=== PATIENT | female | born 1995 | race Caucasian/White ===

== ENCOUNTER → 2020-11-26 06:56 | Outpatient (CLI) | payer OTHER, SELFPAY ==
[2020-11-26 07:58] LABS: Hematocrit 37.3 % (36-46); Hemoglobin 12.6 g/dL (12.0-16.0); Mean Corpuscular HGB Conc 33.7 % (30-36); Mean Corpuscular Hemoglobin 29.2 PG (26-34); Mean Corpuscular Volume 86.8 fL (80-100); Platelet Count 141 X10^3/uL (150-400); White Blood Cell Count 7.5 X10^3/uL (4.5-11.0)
[2020-11-26 08:25] LABS: Glucose Fasting 80 mg/dL (70-100)
[2020-11-26 09:10] LABS: Glucose 1 Hour 150 mg/dL (70-170)
[2020-11-26 09:14] LABS: Glucose Tol Interpretation INTERPRETATION
[2020-11-26 10:23] LABS: Glucose 2 Hour 75 mg/dL (70-140)
== END ==
PROVIDERS: Referring Provider Nurse Practitioner Obstetrics & Gynecology; Visit Provider Nurse Practitioner Obstetrics & Gynecology
DX: Z34.90 Encounter for supervision of normal pregnancy, unspecified, unspecified trimester (principal); Z13.1 Encounter for screening for diabetes mellitus; Z3A.26 26 weeks gestation of pregnancy
CPT/HCPCS: 36415; 82951; 82952; 85027

== ENCOUNTER → 2021-01-29 13:11 | Outpatient (ROUT) | payer OTHER, SELFPAY | PROVIDERS: Visit Provider Nurse Practitioner Obstetrics & Gynecology | DX: Z34.90 Encounter for supervision of normal pregnancy, unspecified, unspecified trimester (principal); Z36.85 Encounter for antenatal screening for Streptococcus B; Z3A.36 36 weeks gestation of pregnancy | CPT/HCPCS: 87081 ==

== ENCOUNTER 2021-02-25 01:28 | Inpatient (IN) | payer OTHER, SELFPAY ==
--- NOTE | 2021-02-25 01:39 | PM.OBHP.1 ---
OB HPI Date/Time Date of admission: 02/25/21 Date Patient Seen: 02/25/21 Time Patient Seen: 01:40 History of Present Condition Chief complaint: Observation of labor : 3 Para: 1 Estimated Date of Delivery: 02/22/21 Estimated Gestational Age (weeks): 40.2 Narrative: Lizet Foreman is a 25 year old female @ [id number] by LMP and early US who presents for evaluation of labor. Was feeling mild contraction when water broke around midnight with a large gush of clear fluid. Contractions have progressed in frequency and intensity since that time. No uncomfortable, but not breathing through contractions yet. Desires low intervention . Uncomplicated care w/ CNM, transferred in from [facility] @ 22wks. is present and supportive. History of Present care: good care and pounds weight gain (34) Dating criteria: LMP confirmed by 1st trimester US Ultrasounds: normal mid trimester US Obstetrical complications: none Medical complications: none Preadmission Labs Blood type: B (+) positive -: Antibody screen: negative, GBS status: negative, HBsAG: negative, HIV: negative and RPR/VDLR: negative -: Chlamydia screen: not detected and Gonorrhea screen: not detected -: Rubella: immune and Varicella: immune HCT: 37.3 HCAB: negative PAP: Normal Narrative: 2 hr gtt: 80/150/70 Prior (ies) History: 02/28/2019: NSVB @ [id number], IOL post dates, male [place], 5hrs, 7#11oz Evaluation Evaluation Baseline heart rate: 125 Variability: Moderate (11-25) monitor accelerations: Present Monitor Decelerations: Absent Contraction Frequency (minutes): 2 Uterine Contraction Intensity: Mild Status: Category l Comments: CE deferred (last CE in clinic 02/22/21: 370/-2), gross SROM PFSH Medical History (Updated 02/25/21 @ 01:48 by Africa Chapa CNM) Anxiety Benign breast cyst in female Depression Surgical History (Updated 02/25/21 @ 01:48 by Africa Chapa CNM) H/O removal of cyst Social History (Updated 02/25/21 @ 01:49 by Africa Eduard, CNM) marital status: number of children: 1 household members: spouse lives independently: Yes caregiver/support person: No housing: house education level: college occupational status: employed Smoking Status: Never smoker substance use type: does not use Meds Home Medications and Allergies Allergies Allergy/AdvReac Type Severity Reaction Status Date / Time No Known Drug Allergies Allergy Verified 02/25/21 02:15 Review of Systems Review of Systems ROS: Yes All systems reviewed with the patient and are negative except as otherwise documented Exam Vital Signs (past 8 hours): BP 123/83, HR 75bpm, T 36.4C Temporal Resp Effort & Inspection: normal respiratory effort Auscultation: clear to auscultation bilaterally Cardio Rate: regular rate Rhythm: regular rhythm Heart Sounds: S1 normal and S2 normal Presentation: vertex Amniotic Fluid: clear Assessment and Plan Assessment and Plan Assessment and Plan narrative: A: Term primipara SROM x 2 hours without sx of infection Approaching active labor No indication for GBS pprophylaxis Cat I FHR P: Admit, routine orders w/ SL IV. Labor support, PRN. Reassess after 2 hours of strong contractions.
[2021-02-25 02:13] VITALS: BP 123/83
[2021-02-25 02:32] LABS: Add Manual Diff / Slide Review NO; Basophils Absolute Auto 100 /uL (0-100); Basophils Percent Auto 0.7 % (0-2); Eosinophils Absolute Auto 0 /uL (0-450); Eosinophils Percent Auto 0.3 % (2-4); Hematocrit 34.7 % (36-46); Hemoglobin 11.5 g/dL (12.0-16.0); Lymphocytes Absolute Auto 1400 /uL (1100-4500); Lymphocytes Percent Auto 18.9 % (25-40); Mean Corpuscular HGB Conc 33.2 % (30-36); Mean Corpuscular Hemoglobin 26.6 PG (26-34); Mean Corpuscular Volume 80.1 fL (80-100); Monocytes Absolute Auto 600 /uL (0-900); Monocytes Percent Auto 7.6 % (3-14); Neutrophils Absolute Auto 5500 /uL (1500-7000); Neutrophils Percent Auto 72.5 % (50-75); Platelet Count 158 X10^3/uL (150-400); Red Blood Cell Count 4.34 X10^6/uL (4.0-5.2); Red Cell Distribution Width 14.7 % (11.6-14.8); White Blood Cell Count 7.6 X10^3/uL (4.5-11.0)
[2021-02-25 02:50] LABS: COVID19 - ADMIT (NP swab/PCR) Negative (Negative)
[2021-02-25] MEDS: OXYTOCIN PREMIX 30 UNIT/500 ML PLAST..BAG 200 UNIT IV (04:10)
--- NOTE | 2021-02-25 04:24 | PM.OBPRVD ---
Labor & Delivery Delivery date: 02/25/21 Intrapartal Events: None Cervical ripening method: none Induction method: none Delivery monitor: external FHT and external uterine Route of delivery: L&D Laceration Description: None Estimated blood loss (mL): 550 Anesthesia Type: None Narrative: Labor progressed rapidly with reassuring FHTs by intermittent auscultation. Patient began to feel a spontaneous urge to push while recumbent on CUB chair, supported by her , and was presumed complete at that time. NSVB of a vigorous baby girl in MIGUEL position with no nuchal cord and easy delivery of the shoulders. was placed on maternal abdomen for drying and skin to skin. Heavy bleeding was noted prior to cessation of pulsation of the cord so 30 units of Pitocin in 500mL LR was started at a bolus. The cord was double clamped by CNM and cut by the FOB. Cord blood hold sample was collected. Gentle cord traction and single maternal push led to spontaneous, Schultze delivery of an apparently intact placenta, membranes and 3VC. Fundus was immediately firm and bleeding was minimal so pitocin was slowed to 300mL/hr. Inspection revealed an intact vagina and perineum. QBL 550mL. Both mother and baby stable and skin to skin as I left the room. Baby 1: Infant gender: Female Presentation: vertex Position: Left Occiput Anterior Placenta delivery description: Spontaneous Cord Vessel Description: 3 Vessels score (1 min): 9 score (5 min): 9 weight: 4 kg Narrative: 8#14.3oz/ 4036grams Plan for aftercare: Routine care
[2021-02-25] MEDS: KETOROLAC 30 MG/ML VIAL IV (05:10)
[2021-02-25] MEDS: IBUPROFEN 600 MG TABLET PO (22:34)
[2021-02-25] MEDS: LANOLIN OINT 7 GM 1 APPLIC TOP (22:34)
--- NOTE | 2021-02-26 04:25 | PM.OBDS.1 ---
Discharge Providers Provider Date of admission: 02/25/21 01:28 Discharge Date: 02/26/21 Consults: 02/26/21 04:21 Consult to Waiter/Waitress Counter Routine Comment: Discharge provider: Africa Chapa CNM Summary Discharge Diagnosis (1) Encounter for full-term uncomplicated delivery: Status: Acute Problem Details: Lizet is voiding, ambulating and independently. Tolerating a general diet. Pain is well controlled w/ PO medication. Eager for discharge to home today. is present and supportive. Time Spent with Patient Time attestation: Total time spent providing and/or coordinating discharge services: Objective Labs Result Diagrams: 02/25/21 02:10 Exam Vital Signs (past 8 hours): BP 124/81, HR 70bpm, RR 16/min, T 98.1F Temporal Other: Fundus firm @ u-1, lochia scant to moderate, no clots, perineum intact w/ mild edema Discharge Plan Discharge Plan Patient Disposition: Home Discharge orders & Medications Prescriptions: New ibuprofen 600 mg Tablet 600 mg PO Q6HR PRN (Reason: Pain, Mild (1-3)) 14 Days Qty: 60 RF: 0 No Action No Known Home Medications RF: 0 Follow up/Referrals: Africa Chapa CNM [[facility] [employer]] - (Follow-up 03/10/21 @ 0945 by Telehealth Follow-up 04/08/21 @ 0945 in office) Diet/Activity/Treatments Diet: Regular Activity: pelvic rest x 6 weeks Skin/Wound/Dressing Care Report to your healthcare provider any signs of infection, such as:: chills, fever, increased pain, unusual drainage and unusual redness Visit Report/Discharge Packet Instructions: DI for Depression
[2021-02-26 09:16] VITALS: BP 107/60; PULSE 72; RESP 17; TEMP 36.2
[2021-02-26] MEDS: IBUPROFEN 600 MG TABLET PO (10:18)
== END 2021-02-26 11:05 | disposition home or self-care (01) | DRG 807 ==
PROVIDERS: Admitting Provider Nurse Practitioner Obstetrics & Gynecology; Referring Provider Nurse Practitioner Obstetrics & Gynecology; Visit Provider Nurse Practitioner Obstetrics & Gynecology
DX: O48.0 Post-term pregnancy (principal); Z37.0 Single live birth; Z3A.40 40 weeks gestation of pregnancy; Z20.822 Contact with and (suspected) exposure to COVID-19
CPT/HCPCS: 36415; 59050; 85025; 86850; 86900; 86901; 87635; C9803; G0379; J1885; J2590

== ENCOUNTER 2022-06-17 07:01 | Inpatient (IN) | payer OTHER, SELFPAY ==
--- NOTE | 2022-06-17 07:09 | PM.OBHP.1 ---
OB HPI Date/Time Date of admission: 06/17/22 Date Patient Seen: 06/17/22 Time Patient Seen: 07:09 History of Present Condition Chief complaint: INDUCTION : 4 Para: 2 Estimated Date of Delivery: 06/06/22 Estimated Gestational Age (weeks): 41.5 Narrative: Lizet Foreman is a 26 year old female @ 41wks 5days by LMP concordant with 10wk US presents for post dates IOL. Uncomplicated PN care with CNM. Reassuring 41wk testing with CHELI-15.44cm. Has been 4/-3 for 2 weeks. Desires low intervention and to avoid pitocin if possible. Planning unmedicated . Indications Indication for induction OB: post dates History of Present care: good care, initiated at week # (10), number of visits (12) and pounds weight gain (18) Dating criteria: LMP confirmed by 1st trimester US Ultrasounds: normal mid trimester US Obstetrical complications: none Medical complications: none Preadmission Labs Blood type: B (+) positive -: Antibody screen: negative, GBS status: negative, HBsAG: negative, HIV: negative and RPR/VDLR: negative -: Chlamydia screen: not detected and Gonorrhea screen: not detected -: Rubella: immune and Varicella: immune HCT: 35.2 HCAB: reactive 1 hr GTT: 88 Narrative: Plt- 144 @ 27wks (03/09/22) Prior (ies) History: 02/28/2019- (vaginal delivery), male, [place], 40.4wks, 24 hr labor, 2? 12/04/2019-10wk SAB (miscarriage) 02/25/2021- (vaginal delivery), female, [place], 40.2wks, 6hr labor, 8#14oz, Intact Evaluation Evaluation Baseline heart rate: 140 Variability: Moderate (11-25) monitor accelerations: Present Monitor Decelerations: Absent Contraction Frequency (minutes): 0 Uterine Contraction Intensity: Mild Category of Tracing: Reactive Dilation (cm): 4 Effacement (%): 70 Dilation: 3-4 cm Effacement: 60-70% station: -3 Position of cervix: posterior Consistency: soft Ibanez score: 6 PFSH Medical History Anxiety Benign breast cyst in female Depression Surgical History H/O removal of cyst Social History marital status: number of children: 1 household members: spouse lives independently: Yes caregiver/support person: No housing: house education level: college occupational status: employed Smoking Status: Never smoker substance use type: does not use Meds Home Medications and Allergies Allergies Allergy/AdvReac Type Severity Reaction Status Date / Time No Known Drug Allergies Allergy Verified 02/25/21 02:15 Review of Systems Review of Systems ROS: Yes All systems reviewed with the patient and are negative except as otherwise documented OB Exam Resp Effort & Inspection: normal respiratory effort Auscultation: clear to auscultation bilaterally Cardio Rate: regular rate Rhythm: regular rhythm Presentation: vertex Objective Labs Result Diagrams: 06/17/22 07:50 Assessment and Plan Assessment and Plan Assessment and Plan narrative: A: Post dates Multipara Post dates IOL No indication for GBS prophylaxis Mild ITP Reactive NST P: Admit, routine orders. Informed consent obtained for induction of labor for post dates. Recommend AROM, given patient's desire for low intervention, unmedicated and patient consented. AROA as soon as independent beauty consultant allows.
[2022-06-17 08:07] LABS: Add Manual Diff / Slide Review NO; Basophils Absolute Auto 0 /uL (0-100); Basophils Percent Auto 0.2 % (0-2); Eosinophils Absolute Auto 0 /uL (0-450); Eosinophils Percent Auto 0.4 % (2-4); Hematocrit 31.3 % (36-46); Hemoglobin 10.6 g/dL (12.0-16.0); Lymphocytes Absolute Auto 1000 /uL (1100-4500); Mean Corpuscular Hemoglobin 26.3 PG (26-34); Mean Corpuscular Volume 77.4 fL (80-100); Monocytes Absolute Auto 400 /uL (0-900); Monocytes Percent Auto 7.2 % (3-14); Neutrophils Absolute Auto 4500 /uL (1500-7000); Neutrophils Percent Auto 75.2 % (50-75); Platelet Count 156 X10^3/uL (150-400); Red Blood Cell Count 4.04 X10^6/uL (4.0-5.2); Red Cell Distribution Width 15.7 % (11.6-14.8)
[2022-06-17 08:21] LABS: COVID19 -Nasal RAPID Negative (Negative)
[2022-06-17 08:35] VITALS: BP 124/74
--- NOTE | 2022-06-17 08:49 | PM.OBPNLAB ---
Date/Time Date Patient Seen: 06/17/22 Time Patient Seen: 08:44 Pain Control Pain control: tolerating well Pelvic Exam Dilation (cm): 4 Effacement (%): 70 station: -3 Amniotic membrane status: Ruptured (AROM) Comments: copious clear fluid Contractions Contractions on admission: none Contraction intensity: Mild Status status: Category l Heart Rate Baseline: 130 Monitor Accelerations: Present Monitor Decelerations: Absent Monitor Variability: Moderate Assessment and Plan Assessment: induction ongoing Plan: continuous present management Comments: Expectant management after AROM. Reassess in 4 hours or sooner, PRN.
[2022-06-17] MEDS: LACTATED RINGERS 1,000 ML 100 ML IV (10:53)
[2022-06-17] MEDS: OXYTOCIN PREMIX 30 UNIT/500 ML PLAST..BAG IV (10:57)
[2022-06-17] MEDS: ACETAMINOPHEN 325 MG TABLET 975 MG PO (12:50)
--- NOTE | 2022-06-17 15:06 | PM.OBPRVD ---
Events: Labor Induction and Labor Augmentation Labor & Delivery Delivery date: 06/17/22 Intrapartal Events: None Cervical ripening method: none Induction method: AROM Delivery augmentation: pitocin Delivery monitor: external FHT and external uterine Route of delivery: Episiotomy description: None L&D Laceration Description: None Quantitative Blood Loss: 50 Anesthesia Type: None Narrative: 26 y.o at 41wks 5 days presented to unit at 0700 for post-dates IOL, partner Gee present with patient. AROM performed at 0848, clear fluid. Baby FHTs Cat 1. Pt augmented with pitocin (max dose 5mU/min). Pt labored unmedicated through various positions. At 1400 patient noted contractions were strong and close together. At 1430 patient began spontaneously pushing and was presumed complete. 1442 NSVB of term female in LOP position, APGARS 9 and 9. [place] passed through mother's legs, mother helped to semi-recumbent position, and placed on mother's abdomen. Remaining pitocin for AMTSL given. After cessation of pulsation the cord was double clamped by Student Nurse Clinical Trials Specialist and cut by patient. Hospital cord blood hold sample was collected. Gentle cord traction applied and placenta delivered Schultze. Fundus immediately firm and bleeding minimal. Vagina and perineum inspected and intact. QBL 50mL. Both mother and baby stable [id number] as I left the room. Baby 1: gender: Female Presentation: vertex Position: Left Occiput Posterior Placenta delivery description: Spontaneous Cord Vessel Description: 3 Vessels score (1 min): 8 score (5 min): 9 weight: 3.812 kg Plan for aftercare: Routine care
[2022-06-17] MEDS: miSOPROStoL 200 MCG TABLET 400 MCG SL (15:24)
[2022-06-17] MEDS: TRANEXAMIC ACID 1,000 MG in SODIUM CHLORIDE 0.9% 100 ML 200 MG IV (15:24)
[2022-06-17] MEDS: KETOROLAC 30 MG/ML VIAL IV (16:15)
[2022-06-17] MEDS: IBUPROFEN 600 MG TABLET PO (22:20)
[2022-06-17] MEDS: ACETAMINOPHEN 325 MG TABLET 650 MG PO (22:20)
[2022-06-18] MEDS: IBUPROFEN 600 MG TABLET PO (04:15)
[2022-06-18] MEDS: ACETAMINOPHEN 325 MG TABLET 650 MG PO (04:15)
--- NOTE | 2022-06-18 08:41 | PM.OBDS.1 ---
Discharge Providers Provider Date of admission: 06/17/22 07:01 Discharge Date: 06/18/22 Primary care physician: Doctor Maryanne MD Consults: 06/18/22 15:02 Consult to Fiber Design Engineer Routine Comment: Discharge provider: Africa Johnson CNM Summary Hospital Course Date Patient Seen: 06/18/22 Time Patient Seen: 08:41 Diagnoses: O80 Hospital Course: PPD1: Stable s/p NSVB (IOL for post dates) with intact vagina and perineum. Voiding, ambulating and independently, without difficulty. Toleratineg a general diet. Cramping pain with is well managed with PO medication. Vaginal bleeding is light, no cots. Feeling ready for discharge to home. Peripartum Data Infant Delivery Method: Natural Vaginal Laceration Description: None Episiotomy description: None Procedures: O80 complications: none [place] 1: Gender: Female Disposition of : home Discharge Diagnosis (1) Encounter for full-term uncomplicated delivery: Status: Acute Problem Details: routine course Status at Discharge Cognitive/behavioral status at discharge: oriented and calm Functional status at discharge: independent ambulation Overall status at discharge: patient is back to baseline Time Spent with Patient Time attestation: Total time spent providing and/or coordinating discharge services: Specific discharge activities: discharge teaching Objective Labs Result Diagrams: 06/17/22 07:50 Labs: Laboratory Results - last 24 hr 06/17/22 07:50 Blood Type B Positive Antibody Screen Negative Exam Vital Signs (past 8 hours): BP 104/65mmHg, HR 53bpm, RR 16/min, T 98.0F Oral Other: Fundus firm @ u-1, lochia scant. Perineum intact. Discharge Plan Discharge Plan Patient Disposition: Home Discharge orders & Medications Prescriptions: New ibuprofen 600 mg Tablet 600 mg PO Q6HR PRN (Reason: Pain, Mild (1-3)) 14 Days Qty: 40 0RF Follow up/Referrals: Doctor Madden MD [Primary Care Provider] - Africa Johnson CNM [[facility] [employer]] - (Follow-up 2 week Phone Call 07/01/22 @ 8:45am Follow-up 6 week Office Visit 07/27/22 @ 4:00pm) Diet/Activity/Treatments Diet: Regular Activity: pelvic rest x 6 weeks Skin/Wound/Dressing Care Report to your healthcare provider any signs of infection, such as:: chills, fever, increased pain, unusual drainage and unusual redness Visit Report/Discharge Packet Instructions: DI for Depression Discharge Data Primary Care Provider: Miscellaneous,Doctor
[2022-06-18 10:43] VITALS: BP 121/86; PULSE 75; RESP 16; TEMP 36.8
== END 2022-06-18 13:08 | disposition home or self-care (01) | DRG 807 ==
PROVIDERS: Admitting Provider Nurse Practitioner Obstetrics & Gynecology; Referring Provider Nurse Practitioner Obstetrics & Gynecology; Visit Provider Nurse Practitioner Obstetrics & Gynecology
DX: O48.0 Post-term pregnancy (principal); Z37.0 Single live birth; Z3A.41 41 weeks gestation of pregnancy
CPT/HCPCS: 36415; 59050; 85025; 86850; 86900; 86901; 87635; C9803; G0379; J1885; J2590; S0191